=== PATIENT | male | born 2000 ===

== ENCOUNTER 2024-12-23 04:15 | Outpatient (CLI) | payer OTHER, SELFPAY | END 2024-12-23 04:16 | disposition home or self-care (01) | LOC: AMB 02-12 10:40 | PROVIDERS: Visit Provider Internal Medicine | DX: R42 Dizziness and giddiness (principal); T58.94XA Toxic effect of carbon monoxide from unspecified source, undetermined, initial encounter | CPT/HCPCS: A0998 ==